=== PATIENT | female | born 1940 | race Caucasian/White ===

== ENCOUNTER 2023-08-06 15:06 | Observation (INO) ==
[2023-08-06] MEDS: ONDANSETRON 4 MG/2 ML VIAL IV ONE (15:12)
[2023-08-06 15:40] LABS: POC INR 1.2 (0.8-1.2); POC Pro Time 14.3 (11.9-14.5)
[2023-08-06] MEDS: 0.9 % SODIUM CHLORIDE 1,000 ML IV ONE (15:47)
[2023-08-06] MEDS: ceFAZolin 2 GM in DEXTROSE 5% IN WATER 50 ML IV ONE (15:47)
[2023-08-06] MEDS: HYDROmorphone 1 MG/ML SYRINGE IV ONE (15:57)
[2023-08-06] MEDS: HYDROmorphone 1 MG/ML SYRINGE ONE (15:57)
[2023-08-06] MEDS: ONDANSETRON 4 MG/2 ML VIAL ONE (15:57)
[2023-08-06 16:03] LABS: Basophils # (Auto) 0.03 K/mcL (0.00-0.30); Basophils % (Auto) 0.5 % (0.0-2.0); Eosinophils # (Auto) 0.33 K/mcL (0.00-0.70); Eosinophils % (Auto) 5.8 % (0.0-7.0); Hematocrit 31.6 % (34.1-44.9); Hemoglobin 9.3 g/dL (11.2-15.7); Lymphocytes # (Auto) 1.08 K/mcL (1.50-4.80); Lymphocytes % (Auto) 18.9 % (15.5-49.0); Mean Cell Volume 81.4 fL (80.0-100.0); Mean Corpuscular HGB Conc 29.4 g/dL (31.0-36.0); Mean Platelet Volume 9.6 fL (8.8-12.5); Monocytes % (Auto) 10.5 % (1.0-12.0); Neutrophils % (Auto) 64.1 % (38.0-78.0); Platelet Count 242 K/mcL (140-440); RBC 3.88 M/mcL (3.59-5.38); Red Cell Distribution Width 22.2 % (11.5-14.5); WBC 5.7 K/mcL (4.5-11.0)
[2023-08-06] MEDS: DIPH,PERTUSS(ACELL),TET VAC/PF 0.5 ML SYRINGE IM ONE (16:13)
[2023-08-06 16:29] LABS: ALT/SGPT 13 U/L (<40); AST/SGOT 24 U/L (<32); Albumin 4.1 gm/dL (3.2-5.2); Albumin/Globulin Ratio 1.5 (1.0-2.3); Alkaline Phosphatase 108 U/L (39-117); Bilirubin,Total < 0.2 mg/dL (0.1-1.0); Blood Urea Nitrogen 20 mg/dL (8-23); Calcium 8.8 mg/dL (8.6-10.4); Carbon Dioxide 25 mmol/L (22-30); Chloride 104 mmol/L (96-108); Globulin 2.8 gm/dL (2.2-3.7); Glomerular Filtration Rate 81; Glucose 91 mg/dL (70-105)
[2023-08-06] MEDS ORDERED: PROPOFOL 200 MG/20 ML VIAL IV ONE (16:52)
[2023-08-06] MEDS ORDERED: LIDOCAINE 2% PF 5 ML VIAL ONE (16:52)
[2023-08-06] MEDS ORDERED: ROCURONIUM 10 MG/ML ML IV ONE (16:53)
[2023-08-06] MEDS ORDERED: SUCCINYLCHOLINE 200 MG/10 ML VIAL IV ONE (16:53)
[2023-08-06] MEDS ORDERED: MIDAZOLAM 2 MG/2 ML VIAL ONE (16:58)
[2023-08-06] MEDS ORDERED: fentaNYL 100 MCG/2 ML VIAL ONE (16:58)
[2023-08-06 17:05] LABS: INR 1.1 (0.9-1.1)
[2023-08-06] MEDS: ceFAZolin 2 GM in DEXTROSE 5% IN WATER 50 ML IV SCH ×2 (17:42→20:18)
[2023-08-06] MEDS ORDERED: ePHEDrine 50 MG/5 ML SYRINGE (ANEST) IV ONE (18:08)
[2023-08-06] MEDS ORDERED: GLYCOPYRROLATE 0.2 MG/ML VIAL IV ONE (18:12)
[2023-08-06] MEDS ORDERED: METOCLOPRAMIDE 10 MG/2 ML VIAL ONE (18:12)
[2023-08-06] MEDS ORDERED: ONDANSETRON 4 MG/2 ML VIAL ONE (18:12)
[2023-08-06] MEDS ORDERED: PHENYLephrine 1 MG/10 ML SYRINGE (ANEST) ONE (18:15)
[2023-08-06] MEDS: ceFAZolin 1 GM VIAL ONE (18:17)
[2023-08-06] MEDS ORDERED: fentaNYL 100 MCG/2 ML VIAL IV PRN (18:22)
[2023-08-06] MEDS ORDERED: IPRATROPIUM/ALBUTEROL 3 ML AMPUL.NEB NEB PRN (18:22)
[2023-08-06] MEDS ORDERED: HYDROmorphone 0.5 MG/0.5 ML SYRINGE IV PRN (18:22)
[2023-08-06] MEDS: VANCOMYCIN 1 GM VIAL TOPICAL SCH (18:45)
[2023-08-06] MEDS: LIDOCAINE 1% 10 ML VIAL SQ ONE (18:57)
[2023-08-06] MEDS: BUPIVACAINE 0.5% 50 ML VIAL IJ ONE (18:57)
[2023-08-06] MEDS ORDERED: FLEETS ADULT 1 DOSE ENEMA PR PRN (18:59)
[2023-08-06] MEDS ORDERED: MAGNESIUM HYDROXIDE 30 ML ORAL.SUSP PO PRN (18:59)
[2023-08-06] MEDS ORDERED: POLYETHYLENE GLYCOL 3350 17 GM PACKET PO PRN (18:59)
[2023-08-06] MEDS ORDERED: BISACODYL 10 MG SUPP.RECT PR PRN (18:59)
[2023-08-06] MEDS: 0.9 % SODIUM CHLORIDE 10 ML SYRINGE IV SCH (20:12)
[2023-08-06] MEDS: LACTATED RINGERS 1,000 ML IV SCH (20:12)
[2023-08-06] MEDS: DOCUSATE SODIUM 100 MG CAPSULE PO SCH (21:34)
[2023-08-06] MEDS: ceFAZolin 1 GM VIAL IV SCH (23:42)
[2023-08-06] MEDS: HYDROCODONE/APAP 7.5/325MG TABLET PO PRN (23:42)
[2023-08-06] MEDS: METHOCARBAMOL 500 MG TABLET PO PRN (23:43)
[2023-08-07] MEDS: OMEPRAZOLE 20 MG CAPSULE PO SCH (07:17)
[2023-08-07] MEDS: VENLAFAXINE 150 MG CAP.XL.24H PO SCH (08:04)
[2023-08-07] MEDS: LISINOPRIL 10 MG TABLET PO SCH (08:04)
[2023-08-07] MEDS: TOLTERODINE 2 MG CAP.XL.24H PO SCH (08:05)
[2023-08-07] MEDS: APIXABAN 5 MG TABLET PO SCH (20:35)
[2023-08-07] MEDS: LORazepam 1 MG TABLET PO PRN (20:35)
== END 2023-08-08 14:15 ==
LOC: ED 15:06 → MEDSUR 17:15 → SUR 17:15 → MEDSUR 19:47
PROVIDERS: ADMIT Orthopaedic Surgery; ATTEND Orthopaedic Surgery